=== PATIENT | male | born 1995 | race Caucasian/White ===

== ENCOUNTER 2017-06-06 11:55 | Emergency (ER) | payer SELFPAY ==
[2017-06-06] MEDS ORDERED: Diphtheria,Pertussis(Acell),Tetanus Vaccine 0.5 ML Syringe IM ONE (11:57)
[2017-06-06] MEDS ORDERED: Morphine 10 MG/ML Syringe IV ONE (11:57)
--- NOTE | 2017-06-06 11:58 | EDM.PDOC ---
ED HPI GENERAL MEDICAL PROBLEM - General Stated Complaint: CUT TO RIGHT HAND PINKIE FINGER Time Seen by Provider: 06/06/17 11:58 Source of Information: Reports: Patient - History of Present Illness INITIAL COMMENTS - FREE TEXT/NARRATIVE: HISTORY AND PHYSICAL: History of present illness: [Patient was using a balanced salt just prior to arrival he amputated his left fifth digit, there is very sluggish capillary refill to the distal finger and he does have pressure sensory to portions of the distal digit, proximal phalanx was exposed hence I put 3 sutures in to close the wound and applied splint bacitracin Telfa dressing until he could be seen by hand specialist in mind that. Is a soft tissue avulsion on the palmar surface of the thumb although it appears most of the fat pad remains intact. ] Review of systems: As per history of present illness and below otherwise all systems reviewed and negative. Past medical history: As per history of present illness and as reviewed below otherwise noncontributory. Surgical history: As per history of present illness and as reviewed below otherwise noncontributory. Social history: No reported history of drug or alcohol abuse. Family history: As per history of present illness and as reviewed below otherwise noncontributory. Physical exam: HEENT: Atraumatic, normocephalic, pupils reactive, negative for conjunctival pallor or scleral icterus, mucous membranes moist, throat clear, neck supple, nontender, trachea midline. Lungs: Clear to auscultation, breath sounds equal bilaterally, chest nontender. Heart: S1S2, regular, negative for clicks, rubs, or JVD. Abdomen: Soft, nondistended, nontender. Negative for masses or hepatosplenomegaly. Negative for costovertebral tenderness. Pelvis: Stable nontender. Genitourinary: Deferred. Rectal: Deferred. Extremities: Atraumatic, negative for cords or calf pain. Neurovascular unremarkable. Neuro: Awake, alert, oriented. Cranial nerves II through XII unremarkable. Cerebellum unremarkable. Motor and sensory unremarkable throughout. Exam nonfocal. Left hand unaffected above the wrist as per history of present illness Diagnostics: Left hand 2 views Therapeutics: [Morphine 2 mg IV Tetanus status is updated today 1 g Rocephin IV Discussed with Dr. Elida Anguiano I hand specialist [place] mind that he'll see the patient in the ER down there] Impression: [Amputation right fifth digit Avulsion of soft tissue palmar surface thumb] Definitive disposition and diagnosis as appropriate pending reevaluation and review of above. left 5th finger Pain Score (Numeric/FACES): 8 - Related Data Allergies Allergy/AdvReac Type Severity Reaction Status Date / Time No Known Allergies Allergy Verified 06/06/17 12:05 Home Meds: Home Meds . [No Known Home Meds] 06/06/17 [History] ED ROS GENERAL - Review of Systems Review Of Systems: ROS reveals no pertinent complaints other than HPI. ED EXAM, GENERAL - Physical Exam Exam: See Below Course - Vital Signs Last Recorded V/S: Last Vital Signs Temp 97.0 F 06/06/17 12:05 Pulse 63 06/06/17 12:05 Resp 18 06/06/17 12:05 BP 117/77 06/06/17 12:05 Pulse Ox 99 06/06/17 12:05 - Orders/Labs/Meds Orders: Active Orders 24 hr Category Date Time Status Vaccines to be Administered [RC] PER UNIT ROUTINE Care 06/06/17 11:58 Active Hand 2V Lt [CR] Stat Exams 06/06/17 11:59 Taken Meds: Medications Discontinued Medications Generic Name Dose Route Start Last Admin Trade Name Freq PRN Reason Stop Dose Admin Diphtheria/Tetanus/Acell Pertussis 0.5 ml 06/06/17 11:57 06/06/17 12:13 Adacel IM 06/06/17 11:58 0.5 ml .ONCE ONE Administration Ceftriaxone Sodium 1,000 mg/ 4 mls @ 4 mls/sec 06/06/17 12:33 Lidocaine HCl IM 06/06/17 12:34 ONETIME ONE Lidocaine HCl 20 ml 06/06/17 12:12 06/06/17 12:24 Xylocaine 1% INJECT 06/06/17 12:13 20 ml ONETIME ONE Administration Morphine Sulfate 2 mg 06/06/17 11:57 06/06/17 12:12 Morphine IV 06/06/17 11:58 2 mg ONETIME ONE Administration Departure - Departure Time of Disposition: 12:40 Disposition: Home, Self-Care 01 Condition: Good Clinical Impression: Amputation finger - Discharge Information Additional Instructions: Proceeded directly to [facility] emergency room in [facility] Directions will be provided Patient elects to travel by private vehicle with a truck driver salesperson rather than an ambulance The following information is given to patients seen in the emergency department who are being discharged to home. This information is to outline your options for follow-up care. We provide all patients seen in our emergency department with a follow-up referral. The need for follow-up, as well as the timing and circumstances, are variable depending upon the specifics of your emergency department visit. If you don't have a primary care physician on staff, we will provide you with a referral. We always advise you to contact your personal physician following an emergency department visit to inform them of the circumstance of the visit and for follow-up with them and/or the need for any referrals to a consulting specialist. The emergency department will also refer you to a specialist when appropriate. This referral assures that you have the opportunity for follow-up care with a specialist. All of these measure are taken in an effort to provide you with optimal care, which includes your follow-up. Under all circumstances we always encourage you to contact your private physician who remains a resource for coordinating your care. When calling for follow-up care, please make the office aware that this follow-up is from your recent emergency room visit. If for any reason you are refused follow-up, please contact the [facility] emergency department at and asked to speak to the emergency department charge nurse. - My Orders Last 24 Hours: My Active Orders 06/06/17 11:58 Vaccines to be Administered [RC] PER UNIT ROUTINE 06/06/17 11:59 Hand 2V Lt [CR] Stat - Assessment/Plan Last 24 Hours: My Active Orders 06/06/17 11:58 Vaccines to be Administered [RC] PER UNIT ROUTINE 06/06/17 11:59 Hand 2V Lt [CR] Stat
[2017-06-06] MEDS ORDERED: Lidocaine 1% 20 ML MDV INJECT ONE (12:12)
[2017-06-06] MEDS ORDERED: cefTRIAXone 1,000 MG in Lidocaine 1% 4 ML IM ONE (12:33)
[2017-06-06] MEDS ORDERED: Bacitracin Oint 1 GM U/D Packet TOP ONE (12:44)
[2017-06-06] MEDS ORDERED: Morphine 2 MG/ML Syringe IVPUSH ONE (13:09)
--- NOTE | 2017-06-07 16:00 | CR ---
EXAM DATE: 06/06/17 PATIENT'S AGE: 21 Patient: MARY BURNETT Facility: [place], [place] Site . Site : 1995 Study: XRay Extremity Left 5th digit [id number] 12:29:10 PM Ordering Physician: Doctor Kyle Final Report: Indication: Table saw injury. Findings: Marked soft tissue defect is noted overlying the left 5th proximal interphalangeal joint. There is a volar dislocation of the middle and distal left phalanges relative to the left 5th proximal phalanx. No obvious fracture is identified and the joint spaces are preserved. Bony mineralization is normal. Impression: Marked soft tissue injury left 5th digit with interphalangeal dislocation. Dictated by Cherelle Roldan MD @ Jun 06 2017 1:11PM (Electronic Signature) Report Signed by Proxy. ALEXIS
== END 2017-06-06 13:18 ==
LOC: MW.ED 11:55
DX: S68.116A Complete traumatic metacarpophalangeal amputation of right little finger, initial encounter (principal); W27.8XXA Contact with other nonpowered hand tool, initial encounter; Z23 Encounter for immunization
CPT/HCPCS: 73120; 90471; 90715; 96372; 96374; 96376; 99284; J0696; J2270; 12001

== ENCOUNTER 2024-10-20 19:57 | Emergency (ER) | payer SELFPAY | END 2024-10-20 22:31 | disposition home or self-care (01) | LOC: MW.ED 19:57 | DX: J06.9 Acute upper respiratory infection, unspecified (principal); Z79.899 Other long term (current) drug therapy; Z75.8 Other problems related to medical facilities and other health care | CPT/HCPCS: 71045; 71045-26; 87428-QW; 87651; 93005; 93010; 99283; 99285 ==